=== PATIENT | female | born 2000 | race Caucasian/White ===

== ENCOUNTER 2020-05-08 14:26 | Emergency (ER) | payer BC, SELFPAY ==
[2020-05-08 14:26] VITALS: BP 128/81; PULSE 100; RESP 20; TEMP 36.7; O2SAT 99; BMI 27.4
--- NOTE | 2020-05-08 15:05 | HMH.EDUTC ---
[facility] [place] Clinical Impression: Cellulitis of left arm Disposition: Home, Self-Care Condition on Discharge: Good Instructions: Cellulitis Additional Instructions: Keep the affected area clean and dry. Follow up with your regular doctor. Take the antibiotics as directed and apply the topical antibiotics as directed. The triamcinolone cream is a steroid cream that is to be used as needed if you are having itching at the site. The mupirocin ointment is an antibiotic ointment. Please use it regularly as directed for 7 days. Apply warm wet compresses to the affected area three or four times per day. GO TO THE ER FOR ANY WORSENING SYMPTOMS Prescriptions: Mupirocin [Bactroban 2% Ointment 22gm tube] 1 applicatio TP TID 7 Days #1 tube Transmission Status: Received by [id number] cephALEXin [Keflex 500mg Cap] 500 mg PO Q6H 10 Days #40 cap Transmission Status: Received by [facility] Triamcinolone Acetonide 1 applicatio TP TIDP PRN 7 Days #1 tube PRN Reason: Itching Transmission Status: Received by [id number] Referrals: Provider,Referral, [Primary Care Provider] - Time of Disposition: 15:15 Medical Decision Making - Medical Records Medical records reviewed: No: I reviewed the patient's medical records. - Chris Inquiry Pt receiving controlled substance: No Vital Signs: 05/08/20 14:26 05/08/20 15:26 Temperature 98.1 F 98.1 F Temperature Source Oral Pulse Rate 100 H Pulse Rate [Right Radial] 100 H Respiratory Rate 20 20 Blood Pressure 128/81 Blood Pressure [Right Arm] 128/81 Blood Pressure Mean [Right Arm] 96 Blood Pressure Source [Right Arm] Automatic Cuff Blood Pressure Position [Right Arm] Sitting 02 Sat by Pulse Oximetry 99 Oxygen Delivery Method Room Air [facility] [place] - General Stated complaint: SORE ON LEFT ARM Time Seen by Provider: 05/08/20 14:30 Mode of Arrival: Ambulatory Source of Information: Patient Limitations: No Limitations Description of Symptoms (Recalled from Triage Doc. by RN): PT C/O SPIDER BITE TO LT ARM HEENT Symptoms (Recalled from RN notes): No Resp Symptoms (Recalled from RN notes): No Skin Symptoms (Recalled from RN notes): Yes (SPIDER BITE TO LT ARM) MS Symptoms (Recalled from RN notes): No Functional Status (Recalled from RN notes): N/A - History of Present Illness Provider Complaint: She c/o a red painful area on her left forearm that she first noticed yesterday. She thinks that she was bit by a spider. She has been working outside in a bunch of [employer] for the past few days. She denies any fever, chills or malaise. But she states the affects spot is very sore and it also itches. - Related Data Previous Rx's Medication Instructions Recorded Mupirocin [Bactroban 2% Ointment 1 applicatio TP TID 7 Days #1 tube 05/08/20 22gm tube] Triamcinolone Acetonide 1 applicatio TP TIDP PRN 7 Days #1 05/08/20 tube cephALEXin [Keflex 500mg Cap] 500 mg PO Q6H 10 Days #40 cap 05/08/20 Allergies Allergy/AdvReac Type Severity Reaction Status Date / Time No Known Allergies Allergy Verified 07/01/18 16:01 - Worker's Comp Is this a Worker's Comp case?: No [facility] History - Hepatitis A Screen Drug use history?: No High risk sexual behaviors?: No History of sexually transmitted infection?: No Currently employed?: No Childcare worker?: No Do you have indoor plumbing?: Yes Do you have electricity?: Yes Attestation statement:: This patient has been screened for Hepatitis A risk factors. I have reviewed the patient's past medical history: Yes Medical History: Denies:: Diabetes Mellitus Type 1, Diabetes Mellitus Type 2 - Social History Smoking Status: Never smoker Tobacco Type: cigarettes Alcohol Intake: never Occupational Status: employed ROS Obtained: Yes All systems reviewed & no additional complaints - Constitutional Constitutional: Denies chills, Denies fever(s) - Musculoskeletal
[2020-05-08 15:26] VITALS: BP 128/81; PULSE 100; RESP 20; TEMP 36.7; O2SAT 99
== END 2020-05-08 15:28 | disposition home or self-care (01) ==
PROVIDERS: Emergency Provider Nurse Practitioner Family
DX: L03.114 Cellulitis of left upper limb (principal)
CPT/HCPCS: 99201

== ENCOUNTER → 2020-09-26 11:25 | Outpatient (CLI) | payer BC, SELFPAY ==
[2020-09-26 12:55] LABS: HCG,Quantitative 37718 mIU/ml (0-5.42)
== END ==
PROVIDERS: Visit Provider Obstetrics & Gynecology
DX: Z34.90 Encounter for supervision of normal pregnancy, unspecified, unspecified trimester (principal)
CPT/HCPCS: 36415; 84702

== ENCOUNTER → 2020-10-04 13:58 | Outpatient (CLI) | payer BC, SELFPAY ==
--- NOTE | 2020-10-04 14:07 | US_ITS ---
PROCEDURE: US OB /MATERNAL DETAIL CLINICAL INDICATION: 20 week anatomy Anatomy exam COMPARISON: No exams were available for comparison FINDINGS: There is a single live fetus which is in cephalic presentation. heart tones are present 138 BPM. The placenta is anterior in implantation and grade 1. There is an average appearing amount of amniotic fluid. Twenty weeks 4 days Complete survey performed and was unremarkable on the submitted images as in PACS. No discrete anomalies identified on survey imaging by technologist. Active fetus. Three-vessel cord with satisfactory umbilical cord insertion. 4- chamber heart noted. Survey of brain & ventricles Unremarkable. Face and neck survey unremarkable. Diaphragm and chest views unremarkable. Abdomen: Both kidneys noted and unremarkable. Stomach noted and satisfactory. Spine: Survey of the spine satisfactory with no anomalies identified nor imaged. Both arms and legs noted. Amniotic Fluid: Adequate. Maternal adnexa: No significant findings. Measurements: Average ultrasound age 20weeks 1day. Gestational Age 20weeks 1day Estimated due date by ultrasound age 0402/20/2021. Estimated weight 322g BPD = 20weeks 4days OFD = 20 weeks 4 days HC = 19weeks 6days AC = 20weeks FL = 20weeks Growth Percentile= % Heart Rate = 138bpm Cerebellum = 20weeks 1day Humerus = 20weeks 1day HC/AC is 1.17 CI is 0.79 FL/BPD is 0.67 FL/AC is 0.22 IMPRESSION: Live IUP at 20 weeks 4 days. All parameters correlate with no obvious anomalies. Please see above for detail Dictated by: Marco Pedro MD 10/05/2020 11:21 Marco Pedro MD in [place] 10/05/2020 11:22
== END ==
PROVIDERS: Visit Provider Obstetrics & Gynecology
DX: Z36.0 Encounter for antenatal screening for chromosomal anomalies (principal)
CPT/HCPCS: 76811

== ENCOUNTER → 2020-10-14 10:45 | Outpatient (CLI) | payer BC, SELFPAY ==
[2020-10-14 11:21] LABS: Basophils % 0.3 % (0.1-2.0); Eosinophils # 0.3 K/mm3 (0.0-0.4); Eosinophils % 2.5 % (0.1-12.0); Hematocrit 35.9 % (37.0-47.0); Hemoglobin 12.1 g/dL (12.2-16.2); Lymphocytes # 2.1 K/mm3 (0.7-4.5); Lymphocytes % 19.3 % (10-50); Mean Corpuscular HGB Conc 33.8 g/dL (31.8-35.4); Mean Corpuscular Hemoglobin 31.4 pg (27.0-31.2); Mean Platelet Volume 8.6 fl (7.4-10.4); Monocytes # 0.4 K/mm3 (0.1-1.0); Monocytes % 3.5 % (1.7-9.3); Neutrophils # 8.1 K/mm3 (1.8-7.8); Neutrophils % 74.4 % (37.0-80.0); Platelet Count 284 K/mm3 (142-424); Red Blood Count 3.86 M/mm3 (4.20-5.40); Red Cell Distribution Width 14.3 % (11.5-17.5); White Blood Count 10.9 K/mm3 (4.5-13.0)
[2020-10-15 11:10] LABS: HIV Screen 4th Generation wRfx Non Reactive (Non Reactive); Hepatitis B Surface Antigen Negative (Negative); Hepatitis C Antibody <0.1 s/co ratio (0.0-0.9); Rubella Antibodies, IgG 4.24 index (Immune >0.99)
[2020-10-31 16:16] LABS: Neisseria gonorrhoeae, NAA NEGATIVE
== END ==
PROVIDERS: Visit Provider Obstetrics & Gynecology
DX: Z34.90 Encounter for supervision of normal pregnancy, unspecified, unspecified trimester (principal)
CPT/HCPCS: 36415; 85025; 86592; 86703; 86762; 86850; 87340; 87380; 87491; 87591; G0432

== ENCOUNTER → 2020-11-04 11:18 | Outpatient (CLI) | payer BC, SELFPAY ==
[2020-11-05 20:10] LABS: Treponema pallidum Antibodies Non Reactive (Non Reactive)
== END ==
PROVIDERS: Visit Provider Obstetrics & Gynecology
DX: A53.0 Latent syphilis, unspecified as early or late (principal)
CPT/HCPCS: 36415; 86780

== ENCOUNTER → 2021-01-17 11:19 | Outpatient (CLI) | payer BC, OTHER, SELFPAY ==
[2021-01-17 12:28] LABS: Glucose,Fasting 88 mg/dl (74-100)
[2021-01-17 13:37] LABS: Glucose 1 Hour 120 mg/dL (74-100)
== END ==
PROVIDERS: Visit Provider Obstetrics & Gynecology
DX: Z34.90 Encounter for supervision of normal pregnancy, unspecified, unspecified trimester (principal)
CPT/HCPCS: 36415; 82951

== ENCOUNTER → 2021-01-28 14:16 | Outpatient (CLI) | payer BC, OTHER, SELFPAY ==
--- NOTE | 2021-01-28 14:18 | US_ITS ---
PROCEDURE: US OB FOLLOW UP CLINICAL INDICATION: US OB Grpwth ANTHONY- SGA COMPARISON: US US OB /MATERNAL DETAIL from 10/04/2020 FINDINGS: There is a single live fetus which is in cephalic presentation. heart body motion is noted. Cervix is closed measuring 4 cm. The placenta is anterior and grade 2. ANTHONY is normal at 14 cm. Measurements: Average ultrasound age 35weeks 3days. Gestational Age 35weeks 3days Estimated due date by ultrasound age 0403/01/2021. Estimated weight 2,534g BPD = 36weeks 3days OFD = HC = 35weeks 6days AC = 34weeks 3days FL = 35weeks Growth Percentile= 13% Heart Rate = 155bpm Cerebellum = Humerus = HC/AC is 1.05 CI is 0.81 FL/BPD is 0.76 FL/AC is 0.22 IMPRESSION: Live IUP with an average ultrasound age of 35 weeks 3 days. Cephalic position. ANTHONY normal at 14 cm. Estimated weight is 2534 g which is 13th percentile Dictated by: Marco Pedro MD 01/29/2021 19:03 Marco Pedro MD in [facility] 01/29/2021 19:03
== END ==
PROVIDERS: PCP Obstetrics & Gynecology; Visit Provider Obstetrics & Gynecology
DX: O36.5990 Maternal care for other known or suspected poor fetal growth, unspecified trimester, not applicable or unspecified (principal)
CPT/HCPCS: 76816

== ENCOUNTER → 2021-01-30 16:29 | Outpatient (CLI) | payer BC, OTHER, SELFPAY | PROVIDERS: Visit Provider Obstetrics & Gynecology | DX: Z34.90 Encounter for supervision of normal pregnancy, unspecified, unspecified trimester (principal) | CPT/HCPCS: 86403 ==

== ENCOUNTER 2021-02-10 12:11 | Outpatient (CLI) | payer BC, OTHER, SELFPAY ==
[2021-02-10 12:50] VITALS: BMI 35.3
--- NOTE | 2021-02-10 12:51 | US_ITS ---
PROCEDURE: US OB BIOPHYSICAL PROFILE CLINICAL INDICATION: bradycardia TECHNIQUE: FINDINGS: The following parameters are obtained: Single viable intrauterine gestation is noted. heart rate: 139bpm bpm Amniotic fluid index: 10.88cm Qualitative AFV: 2 breathing movements: 2 Gross body movements: 2 Tone: 2 Biophysical profile score: 8 IMPRESSION: Biophysical profile of 8, within normal limits. Dictated by: Britany Mo 02/10/2021 15:16 Britany Mo in [facility] 02/10/2021 15:16
== END 2021-02-10 13:37 | disposition home or self-care (01) ==
LOC: OBOUT 12:12 → OB 12:12
PROVIDERS: Visit Provider Obstetrics & Gynecology
DX: O09.30 Supervision of pregnancy with insufficient antenatal care, unspecified trimester (principal); Z3A.38 38 weeks gestation of pregnancy
CPT/HCPCS: 59025; 76819; 96360

== ENCOUNTER → 2021-02-23 09:54 | Outpatient (CLI) | payer BC, OTHER, SELFPAY | PROVIDERS: Visit Provider Obstetrics & Gynecology | DX: Z01.818 Encounter for other preprocedural examination (principal); Z11.52 Encounter for screening for COVID-19 | CPT/HCPCS: U0003 ==

== ENCOUNTER 2021-02-24 04:50 | Inpatient (IN) | payer BC, OTHER, SELFPAY ==
[2021-02-24] VITALS (10 sets, daily range): BP systolic 110–138; BP diastolic 40–90; PULSE 54–78; RESP 12–18; TEMP 36.4–36.8; O2SAT 97–100; BMI 35.1; BMI 35.3
[2021-02-24 05:54] LABS: Basophils # 0.1 K/mm3 (0-0.2); Basophils % 0.4 % (0.1-2.0); Eosinophils # 0.2 K/mm3 (0.0-0.4); Eosinophils % 1.8 % (0.1-12.0); Hematocrit 31.5 % (37.0-47.0); Hemoglobin 10.7 g/dL (12.2-16.2); Lymphocytes # 2.4 K/mm3 (0.7-4.5); Lymphocytes % 22.3 % (10-50); Mean Corpuscular HGB Conc 33.9 g/dL (31.8-35.4); Mean Corpuscular Hemoglobin 30.9 pg (27.0-31.2); Mean Corpuscular Volume 91.2 fl (81-99); Mean Platelet Volume 10.4 fl (7.4-10.4); Monocytes # 0.5 K/mm3 (0.1-1.0); Monocytes % 4.5 % (1.7-9.3); Neutrophils # 7.6 K/mm3 (1.8-7.8); Platelet Count 206 K/mm3 (142-424); Red Blood Count 3.46 M/mm3 (4.20-5.40); Red Cell Distribution Width 14.1 % (11.5-17.5); White Blood Count 10.7 K/mm3 (4.8-10.8)
[2021-02-24 06:29] LABS: Microscopic, Urine URINE MICROSCOPIC (MICROSCOPIC)
[2021-02-24 06:56] LABS: Appearance,Urine CLEAR (Clear); Bilirubin,Urine Negative (Negative); Blood, Urine TRACE-I (Negative); Color,Urine YELLOW (Yellow); Glucose,Urine (UA) Negative (Negative); Ketones,Urine Negative (Negative); Leukocyte Esterase,Urine Negative (Negative); Nitrate,Urine Negative (Negative); Protein,Urine Negative (Negative); Specific Gravity, Urine 1.015 (1.005-1.030); Urobilinogen,Urine 0.2 EU/dl (0.2)
[2021-02-24 07:03] LABS: Benzodiazepines Screen,Urine Negative ng/ml (<200)
[2021-02-24 07:04] LABS: Amphetamine/Metha Screen,Urine Negative ng/ml (<1000)
[2021-02-24 07:05] LABS: Cannabinoid Screen,Urine Negative ng/ml (<50); Cocaine Screen,Urine Negative ng/ml (<300)
[2021-02-24 07:06] LABS: Methadone Screen,Urine Negative ng/ml (<300)
[2021-02-24 07:07] LABS: Opiate Screen,Urine Negative ng/ml (<300); Phencyclidine Screen,Urine Negative ng/ml (<25)
[2021-02-24 07:13] LABS: Barbiturates Screen,Urine Negative ng/ml (<200)
--- NOTE | 2021-02-24 09:34 | HMH.OBAPHP ---
OB - H&P: HPI Antepartum - History of Present Illness Chief complaint: Induction of labor History of present illness: G1 @ 40 wks with IUGR 13% status reassuring with monitoring Late care beginning 21 wks mild anemia with Initial positive RPR confirmed to be negative with treponemal antibodies HMH History I have reviewed the patient's past medical history: Yes Medical History: Denies:: Diabetes Mellitus Type 1, Diabetes Mellitus Type 2 *Have you ever received a pneumonia vaccine?: No *Have you received a flu vaccine this season?: Yes Laterality Cases: Bilateral: Myringotomy (Ear Tubes) Other Surgeries: No: Amputation: No Fractures: No - *Social History Smoking Status: Never smoker Tobacco Type: cigarettes Alcohol Intake: never Substance Use Type: denies use *Occupational Status:: employed *Travel in the last 8 weeks: None Family Hx:: No significant family history Para: 0 Review of Systems - Review of Systems Review of systems:: pertinent systems reviewed and negative unless documented below Meds Home Medications Medication Instructions Recorded Confirmed Type Vit Calc,Iron,Folic [Kpn] 1 tab PO DAILY 02/24/21 02/24/21 History Allergies Allergy/AdvReac Type Severity Reaction Status Date / Time No Known Allergies Allergy Verified 02/20/21 09:07 OB - H&P: Exam - Physical Exam Vital signs: Temp Pulse Resp BP Pulse Ox 97.9 F 54 L 16 128/76 98 02/24/21 07:53 02/24/21 07:53 02/24/21 07:53 02/24/21 07:53 02/24/21 07:53 - Constitutional no acute distress - Routine HEENT Exam Head: Present: normocephalic, atraumatic Eye: Absent: conjunctival icterus ENT: Present: mucous membranes moist - Routine Neck Exam Present: supple - Routine Chest/Breast/Axilla Exam Chest wall: Absent: tenderness - Routine Respiratory Exam Present: CTA bilaterally - Routine Cardiovascular Exam Present: RRR - Routine Abdominal Exam Present: soft. Absent: tenderness, distended - Routine Exam Comments: cervix 2/80/-2 AROM with small clear fluid IUPC and FSE placed without difficulty or complication - Routine Extremities Exam Present: edema (1+) - Routine Back/Spine/Pelvis Exam Back/Spine: Absent: CVA tenderness - Routine Skin Exam Absent: rash - Routine Neurological Exam Present: alert, oriented X3 - Routine Psychiatric Exam Present: normal affect OB - Results - Labs Labs: Short CBC 02/24/21 Range/Units 05:25 WBC 10.7 (4.8-10.8) K/mm3 Hgb 10.7 L (12.2-16.2) g/dL Hct 31.5 L (37.0-47.0) % Plt Count 206 (142-424) K/mm3 Urine 02/24/21 Range/Units 05:30 Urine Color Yellow (Yellow) Urine Appearance Clear (Clear) Urine pH 7.0 (5.0-8.5) Ur Specific [place] 1.015 (1.005-1.030) Urine Protein Negative (Negative) Urine Glucose (UA) Negative (Negative) OB - A/P Antepartum (1) Small for gestational age fetus Problem details: EFW 13% Status: Acute (2) Late care Problem details: 1st appt: 21 wks Status: Acute (3) Anemia complicating Status: Acute - Additional Plan Additional Information:: Continue pitocin augmentation status reassuring with category 1 tracing Continuous monitoring in labor Epidural at patient request
--- NOTE | 2021-02-24 11:32 | P.PN_ITS ---
[facility] Anesthesia Checklist - Patient Identification Patient Identification: Arm Band - Structural Data Admitted From: Inpatient Planned Operative Procedure/s: Labor MARIAH Consent for Planned Operative Procedure(s) Verified: Yes Verified Documents: Surgical Consent, History and Physical - Airway Assessment C-Spine Mobility Assessed: Yes TMJ Mobility Assessed: Yes Dentition: Good Dentition - Neurological Assessment Level of Consciousness: Awake, Alert - Anesthesia Plan Anesthesia Risk discussed: Yes Anesthesia Plan: Verified ASA Class: II Anesthesia Type: Epidural [facility] History Medical History: Denies:: Diabetes Mellitus Type 1, Diabetes Mellitus Type 2 *Have you ever received a pneumonia vaccine?: No *Have you received a flu vaccine this season?: Yes Anesthesia experience/problems:: None Laterality Cases: Bilateral: Myringotomy (Ear Tubes) Other Surgeries: No: Amputation: No Fractures: No - *Social History Smoking Status: Never smoker Tobacco Type: cigarettes Alcohol Intake: never Substance Use Type: denies use *Occupational Status:: employed *Travel in the last 8 weeks: None Family Hx:: No significant family history Para: 0
--- NOTE | 2021-02-24 13:30 | HMH.LABNOT ---
Labor Note - Subjective: Date: 02/24/21 Time: 13:30 Comment:: contractions show insufficient amplitute, while on 18 mU pitocin comfortable with epidural - Objective: NST:: Reactive Cervical Dilation:: 2-3 Effacement:: 80% Membranes: artificially ruptured - Fetus: Monitoring?: Yes monitoring type:: Internal - Assessment: Patient Problems: All Active Problems Anemia complicating (Acute) (Acute) Small for gestational age fetus (Acute) Late care (Acute) Cellulitis of left arm (Acute) Comment:: slow/minimal progress IUPC replaced and patient repositioned - Plan: Comment:: Labor progress not as expected, with insufficient amplitude of contractions and no cervical change continue pitocin augmentation patient repositioned recheck cervix in 1-2 hours
--- NOTE | 2021-02-24 16:42 | P.PN_ITS ---
[facility] Anesthesia Record Part I Intake, IV Amount: 2,200 Estimated blood loss (mL): 800 Urine output (mL): 250 Blood Pressure: 117/40 SaO2: 100 Pulse Rate: 62 Respiratory Rate: 12 Temperature: 98 F Patient is:: Awake, Stable Stable to PACU at:: 16:35
--- NOTE | 2021-02-24 16:50 | HMH.LABNOT ---
Labor Note - Subjective: Date: 02/24/21 Time: 14:50 Comment:: regular contractions with sufficient amplitude - Objective: NST:: Reactive Contractions:: every 2-3 minutes Cervical Dilation:: 2-3 Effacement:: 80% Station: -2 Membranes: artificially ruptured - Fetus: monitoring type:: Internal - Assessment: Patient Problems: All Active Problems Anemia complicating (Acute) (Acute) Small for gestational age fetus (Acute) Late care (Acute) Cellulitis of left arm (Acute) Comment:: Failure to progress in labor with no cervical dilation since admission Increasing caput on vertex Will proceed to OR for primary C Section All questions answered and informed consent obtained
--- NOTE | 2021-02-24 16:57 | P.OP_ITS ---
Date of procedure: 02/24/21 Pre-op Diagnosis:: 1. 40 3/7 weeks gestation 2. IUGR 3. Failure to progress in labor Post-op Diagnosis:: same Procedure performed:: Low Transverse C Section Surgeon:: Reyna Haas MD Bending Roll Operator(s):: Dorothy Davila STOCK CLERK [employer]ELF [employer]ICE [employer]ORE:: Nakul Medina Anesthesia: epidural Estimated blood loss (mL): 800 Operative findings:: vigorous liveborn male , apgars 9 & 9 normal uterus, fallopian tubes and ovaries Operative note:: The patient was taken to the OR and epidural level was confirmed to be sufficient. She was prepped and draped in normal sterile fashion. A pfannenstiel skin incision was made with the scalpel and carried down to the fascia. The fascia was incised in the midline and sharply dissected off the rectus muscles. The muscles were in the midline and the peritoneum was entered sharply and extended bluntly. The Tucker-O self retaining retractor was placed in the abdomen and a bladder flap was created. The uterus was incised in the lower uterine segment in a transverse fashion and extended bluntly. The was delivered in controlled fashion, without complication or shoulder dystocia. The infant was vigorous at and handed to awaiting pediatricians for evaluation after cord clamped and cut. Cord blood was collected and a cord segment was preserved. The placenta was manually extracted and noted to be intact. The uterus was repaired with 0-vicryl in a running/locked fashion. The peritoneum was closed with 2-0 vicryl in a running fashion. The fascia was closed with #1 vicryl in a running fashion. The subcutaneous fat was closed with 2-0 vicryl in an interrupted fashion. The skin was closed with subcuticular suture. The patient tolerated the procedure well. Sponge, lap, needle and instrument counts were correct x 2. She was taken to PACU awake and in stable condition. Condition: stable Disposition: PACU Specimens:: none Complications:: none
--- NOTE | 2021-02-24 17:43 | SUR.OPER ---
viable male time of 1109
[2021-02-25] VITALS (23 sets, daily range): BP systolic 104–130; BP diastolic 51–73; PULSE 59–89; RESP 16–18; TEMP 36.7–37.3; O2SAT 98–100
--- NOTE | 2021-02-25 07:15 | HMH.PHAVTE ---
[facility] VTE Monitoring - Patient Demographics Admission date: 02/24/21 Report Date: 02/25/21 Time: 07:15 Allergies/Adverse Reactions: Patient Allergies No Known Allergies Allergy (Verified 02/20/21 09:07) Height: 1.57 m Weight: 87.09 kg Patient Problems: Current Active Problems Anemia complicating (Acute) Small for gestational age fetus (Acute) Late care (Acute) - VTE Risk Labs: VTE Related Lab Results Hgb 10.7 g/dL (12.2-16.2) L 02/24/21 05:25 Hct 31.5 % (37.0-47.0) L 02/24/21 05:25 Plt Count 206 K/mm3 (142-424) 02/24/21 05:25 Clinical Trial Participant: No - Prophylaxis VTE Prophylaxis Ordered?: Yes Types of VTE Prophylaxis: IPCS Knee High
--- NOTE | 2021-02-25 10:50 | HMH.ACPN2 ---
Internal Medicine - PN: Subj *Date: 02/25/21 *Time: 10:50 Interval history: POD #1 primary CS No unusual complaints Tolerating regular diet Ambulating and voiding without difficulty Lochia less than menses Asymptomatic with [id number] anemia Hgb today 8.0 (10.7 at admission) Exam Vital signs and Labs for Last 24 Hours: Temp Pulse Resp BP Pulse Ox 98.1 F 72 16 127/70 99 02/25/21 04:00 02/25/21 04:00 02/25/21 04:00 02/25/21 04:00 02/25/21 04:00 Laboratory Results - last 24 hr 02/24/21 05:25: Blood Type O Positive, Antibody Screen Negative, Crossmatch (AHG) See Detail 02/25/21 06:34: Hgb 8.0 L, Hct 24.0 L I & O for Last 24 hours: Intake & Output 02/22/21 02/23/21 02/24/21 02/25/21 11:59 11:59 11:59 11:59 Intake Total 2200 / 2200 Output Total 1200 / 1200 Balance 1000 / 1000 Weight 192 lb 0.009 oz Narrative: CONSTITUTIONAL: no acute distress HEENT: mucous membranes moist PULMONARY: breathing unlabored without audible wheezes CV: no tachycardia or visible JVD; normal LE peripheral pulses ABD: soft, ND; appropriately tender but no rebound/guarding : fundus firm at/below umbilicus SKIN: incision well approximated with no drainage, erythema or induration EXT: 1+ edema LEs NEURO: alert/oriented, no altered mental status PSYCH: appropriate mood and demeanor without anxiety/depression Assessment and Plan (1) Small for gestational age fetus Problem details: EFW 13% Status: Acute Category: Medical (2) Late care Problem details: 1st appt: 21 wks Status: Acute Category: Medical Code(s): O09.30 - Supervision of with insufficient care, unspecified trimester (3) Anemia complicating Status: Acute Category: Medical Code(s): O99.019 - Anemia complicating , unspecified trimester - Assessment and plan all Dx Assessment and Plan for all problems:: Routine postop care FeSO4 with PNV Repeat H/H later today and cross-matched x 2 units asymptomatic with [id number] anemia
--- NOTE | 2021-02-25 10:55 | SW/DCPLANNER ---
I received a referral regarding late care for this patient. Patient started care at 21+ weeks and had a total of 10 visits. Patient stated the reasoning for late care was due to herself and infants father residing in an apartment without a vehicle. Patient stated that they now reside elsewhere and do have a vehicle to transport to MD appointments. (Andrew Kiran) was born yesterday [birth year]. Infants father (Anuj Kiran 08/11/00) was present at time of my visit. Patient and were negative at admission urine drug screen. Patient, her parents (Tonya and Gen Zapata), and infants father will reside at [address] [place] [address] in [place] [address]. Patients contact phone number is [phone]. Patient is currently established with [facility] and is interested in HANDS. I will contact HANDS department and ask that they follow up with this patient. Patient stated that she does have: crib, carseat, clothing, diapers and will be bottle feeding. Patients nurse (Iwona) has stated that both parents are appropriate with . I will follow up with nursing if any issues arise during hospital admission.
--- NOTE | 2021-02-25 11:14 | P.PN_ITS ---
[facility] Anesthesia Record Part II Discharge Time: 17:05 Destination: Obstetric PACU nurse assessment reviewed?: Yes Patient Condition:: Good Anesthesia Complications:: None Swallowing reflex intact?: Yes Cyanosis?: No Blood Pressure: 114/62 Pulse Rate: 59 Temperature: 98.2 F Mental Status: Alert & Oriented Pain level:: 0 Nausea and/or vomitting:: None Intake, IV Amount: 0
[2021-02-25 14:28] LABS: Hemoglobin 7.2 g/dL (12.2-16.2)
[2021-02-25 20:05] LABS: Hematocrit 28.4 % (37.0-47.0)
[2021-02-25 20:13] LABS: Hemoglobin 9.6 g/dL (12.2-16.2)
[2021-02-26 04:00] VITALS: BP 118/65; PULSE 75; RESP 17; TEMP 36.6; O2SAT 98
--- NOTE | 2021-02-26 11:46 | HMH.ACPN2 ---
Internal Medicine - PN: Subj *Date: 02/26/21 *Time: 11:46 Interval history: PPD #2 primary LTCS [id number] anemia with transfusion 2 units PRBCs post-transfusion Hgb 9.6 tolerating regular diet, ambulating and voiding without difficulty lochia appropriate Exam Vital signs and Labs for Last 24 Hours: Temp Pulse Resp BP Pulse Ox 97.8 F 75 17 118/65 98 02/26/21 04:00 02/26/21 04:00 02/26/21 04:00 02/26/21 04:00 02/26/21 04:00 Laboratory Results - last 24 hr 02/24/21 05:25: Blood Type O Positive, Antibody Screen Negative, Crossmatch (AHG) See Detail 02/25/21 13:42: Hgb 7.2 L*, Hct 21.0 L* 02/25/21 19:53: Hgb 9.6 L D, Hct 28.4 L I & O for Last 24 hours: Intake & Output 02/23/21 02/24/21 02/25/21 02/26/21 11:59 11:59 11:59 11:59 Intake Total 2200 / 2200 500 / 500 Output Total 1200 / 1200 Balance 1000 / 1000 500 / 500 Weight 192 lb 0.009 oz Narrative: CONSTITUTIONAL: no acute distress HEENT: mucous membranes moist PULMONARY: breathing unlabored without audible wheezes CV: no tachycardia or visible JVD; normal LE peripheral pulses ABD: soft, ND; appropriately tender but no rebound/guarding : fundus firm at/below umbilicus SKIN: incision well approximated with no drainage, erythema or induration EXT: 1+ edema LEs NEURO: alert/oriented, no altered mental status PSYCH: appropriate mood and demeanor without anxiety/depression Assessment and Plan (1) Small for gestational age fetus Problem details: EFW 13% Status: Acute Category: Medical (2) Late care Problem details: 1st appt: 21 wks Status: Acute Category: Medical Code(s): O09.30 - Supervision of with insufficient care, unspecified trimester (3) Anemia complicating Status: Acute Category: Medical Code(s): O99.019 - Anemia complicating , unspecified trimester (4) Anemia associated with acute blood loss Status: Acute Category: Medical Code(s): D62 - Acute posthemorrhagic anemia - Assessment and plan all Dx Assessment and Plan for all problems:: routine /postop care continue FeSO4 planning for discharge home tomorrow
[2021-02-26 19:58] VITALS: BP 131/73; PULSE 91; RESP 18; TEMP 36.8; O2SAT 98
[2021-02-26 23:42] VITALS: BP 136/81; PULSE 75; RESP 18; TEMP 36.7; O2SAT 98
[2021-02-27 04:37] VITALS: BP 135/63; PULSE 88; RESP 18; TEMP 36.8; O2SAT 97
[2021-02-27 08:00] VITALS: BP 130/69; PULSE 76; RESP 18; TEMP 37.1; O2SAT 98
--- NOTE | 2021-02-27 09:54 | P.DS_ITS ---
General - General Admission date:: 02/24/21 Discharge date: 02/27/21 HPI HPI: Induction of labor at 40+ weeks complicated by growth restriction, anemia and late presentation to care with uncertain dating Delivered via primary c section for failure to progress Hgb 7.0 and transfused 2 units PRBCs discharged home on POD #3 in stable condition Tolerating regular diet, ambulating and voiding without difficulty Hospital Course Rhogam Administration: Not Indicated Objective Vital signs: Temp Pulse Resp BP Pulse Ox 98.8 F 76 18 130/69 98 02/27/21 08:00 02/27/21 08:00 02/27/21 08:00 02/27/21 08:00 02/27/21 08:00 Narrative: CONSTITUTIONAL: no acute distress HEENT: mucous membranes moist PULMONARY: breathing unlabored without audible wheezes CV: no tachycardia or visible JVD; normal LE peripheral pulses ABD: soft, ND; appropriately tender but no rebound/guarding : fundus firm at/below umbilicus SKIN: incision well approximated with no drainage, erythema or induration EXT: 1+ edema LEs NEURO: alert/oriented, no altered mental status PSYCH: appropriate mood and demeanor without anxiety/depression DS: Diagnosis - Discharge Diagnosis (1) Small for gestational age fetus Status: Acute Problem details: EFW 13% (2) Late care Status: Acute Problem details: 1st appt: 21 wks (3) Anemia complicating Status: Acute (4) Anemia associated with acute blood loss Status: Acute Discharge Plan - Patient Discharge Instructions ACTIVITY: Continue current activity DIET: regular diet Additional Instructions: Nothing in the vagina for 6 weeks No driving or heavy lifting Patient Instructions: Depression, Hemorrhage, DI for Ce sarean , DI for Pre-eclampsia, [facility] Post Discharge Instructions, Preventing the Spread of Coronavirus Discharge Instructions - Follow up Plan Follow up with: Reyna Haas MD [Staff Physician] - Disposition: Home, Self-Prison Medications: Home Medications Medication Instructions Recorded Confirmed Type Vit Calc,Iron,Folic [Kpn] 1 tab PO DAILY 02/24/21 02/24/21 History Ibuprofen [Motrin 400mg 800 mg PO Q6HP PRN #40 tab 02/27/21 Rx tablet] Oxycodone HCl [OxyIR 5mg tablet] 5 mg PO Q4HP PRN #24 tablet 02/27/21 Rx Prescriptions/Medication Reconciliation: New Acetaminophen [Acetaminophen 325mg tab] 650 mg PO Q4HP PRN tablet PRN Reason: Mild Pain Ferrous Sulfate [Ferrous Sulfate 325mg Tablet] 325 mg PO BID tablet Oxycodone HCl [OxyIR 5mg tablet] 5 mg PO Q4HP PRN #24 tablet PRN Reason: Moderate Pain Ibuprofen [Motrin 400mg tablet] 800 mg PO Q6HP PRN #40 tab PRN Reason: Mild To Moderate Pain Continued Vit Calc,Iron,Folic [Kpn] 1 tab PO DAILY - Problem Reconciliation Problems Reviewed?: Yes
== END 2021-02-27 12:25 | disposition home or self-care (01) | DRG 788 ==
PROVIDERS: Admitting Provider Obstetrics & Gynecology; Visit Provider Obstetrics & Gynecology
PROC: 10D00Z1 Extraction of Products of Conception, Low, Open Approach (ICD-10-PCS; CPT 59514; principal; 2021-02-24 15:30)
DX: O36.5930 Maternal care for other known or suspected poor fetal growth, third trimester, not applicable or unspecified (principal); Z3A.40 40 weeks gestation of pregnancy; Z37.0 Single live birth; O99.02 Anemia complicating childbirth; O62.0 Primary inadequate contractions
CPT/HCPCS: 59515; 36415; 59025; 80305; 81001; 85014; 85018; 85025; 86850; 94761; C1758; G0283; P9016